=== PATIENT | female | born 2000 | race Caucasian/White ===

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

== ENCOUNTER 2018-08-15 18:49 | Emergency (ER) | payer MEDICAID ==
[2018-08-15 19:04] VITALS: BP 124/90
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
== END 2018-08-15 20:00 | disposition home or self-care (01) ==
LOC: JP.ED 18:49
DX: R30.0 Dysuria (principal); Z88.0 Allergy status to penicillin
CPT/HCPCS: 81001; 99284

== ENCOUNTER 2023-01-04 22:44 | Emergency (ER) | payer MEDICAID ==
[2023-01-04 22:56] VITALS: BP 117/75; PULSE 80
== END 2023-01-04 23:33 | disposition home or self-care (01) ==
LOC: JP.ED 22:44
DX: H65.91 Unspecified nonsuppurative otitis media, right ear (principal); Z88.0 Allergy status to penicillin; Z87.891 Personal history of nicotine dependence
CPT/HCPCS: 99282

== ENCOUNTER 2023-04-01 22:20 | Inpatient (IN) | payer MEDICAID ==
[2023-04-02 00:38] VITALS: BP 119/73; PULSE 62
== END 2023-04-02 07:15 | DRG 807 ==
LOC: JP.OBCHECK 22:20 → JP.OB 22:20 → OBSVTOIN 22:39 → JP.OBCHECK 22:39 → JP.OB 22:39 → UNDODISOB 04-02 00:10
PROVIDERS: ADMIT Emergency Medicine Emergency Medical Services; ATTEND Emergency Medicine Emergency Medical Services
PROC: 10E0XZZ Delivery of Products of Conception, External Approach (ICD-10-PCS; principal; 2023-04-01)
DX: O80 Encounter for full-term uncomplicated delivery (principal); Z37.0 Single live birth; Z3A.40 40 weeks gestation of pregnancy; Z88.0 Allergy status to penicillin
CPT/HCPCS: J2590